=== PATIENT | female | born 1975 | race Caucasian/White ===

== ENCOUNTER 2017-07-22 13:28 | Emergency (ER) | payer SELFPAY ==
[2017-07-22] MEDS ORDERED: Sodium Chloride 0.9% 1,000 ML IV SCH (14:15)
[2017-07-22] MEDS ORDERED: Aspirin 81 MG Tab.Chew PO ONE (14:23)
[2017-07-22] MEDS ORDERED: Ondansetron 4 MG/2 ML SDV IVPUSH ONE ×2 (14:23→15:54)
[2017-07-22] MEDS ORDERED: Alum Hydrox/Mag Hydrox/Simeth 30 ML, Lidocaine 2% 15 ML PO ONE ×2 (14:23)
[2017-07-22] MEDS ORDERED: Metoprolol Tartrate 5 MG/5 ML SDV IVPUSH ONE ×2 (14:27→15:26)
--- NOTE | 2017-07-22 14:30 | EDM.PDOC ---
ED HPI GENERAL MEDICAL PROBLEM - General Chief Complaint: Chest Pain Stated Complaint: VOMITING/CHEST PAIN Time Seen by Provider: 07/22/17 14:14 Source of Information: Reports: Patient History Limitations: Reports: No Limitations - History of Present Illness INITIAL COMMENTS - FREE TEXT/NARRATIVE: Patient is a 42-year-old female presents ED complaining of nausea and vomiting that started last night. Patient has vomited multiple times since onset. In addition developed chest discomfort this morning rated a 7 out of 10 substernal with no radiation. Described as a sharp discomfort that is constant with waxing and waning in intensity. This is not similar to previous episode of chest discomfort approximately 4 months ago when she was diagnosed with heart attack. Heart catheterization took place at that time with no stent placement. She continues to be nauseated with no bloody emesis. Mild epigastric discomfort. No diarrhea or dysuria present. She has been consuming alcohol for the past 2 weeks every day. This is abnormal for her. She does have a history of marijuana use but denies any or other recent recreational drugs. She is moving from [facility] to [place], [place]. States her boyfriend is incarcerated in [place] for the past 6 months. She will be going to pick him up in the next few weeks to move him to [place]. He has a job lined up to work in the [employer]. Pain to epigastric region increases with eating/ vomiting. Decreased with laying down. She does have history of anxiety. She currently taking Lasix, metoprolol, atorvastatin, baby aspirin, and albuterol inhaler. She denies any additional medical history. Other than heart catheterization denies any additional surgeries. Patient does not smoke. Patient admits to not following up with pharmacist and or PCP upon discharge from the hospital after being diagnosed with heart disease. She presents to the ED with elevated systolic and diastolic pressures. She states this is normal for her. She denies having a history of pulmonary hypertension. 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 Denies: Fever, Chills HEENT: Reports: No Symptoms Respiratory: Denies: Shortness of Breath, Cough, Sputum Cardiovascular: Reports: Chest Pain. Denies: Dyspnea on Exertion, Palpitations GI/Abdominal: Reports: Abdominal Pain (epigstric), Decreased Appetite, Nausea, Vomiting. Denies: Black Stool, Bloody Stool, Constipation, Diarrhea, Difficulty Swallowing, Distension, Flatus, Hematemesis, Hematochezia, Melena : Reports: No Symptoms Musculoskeletal: Denies: Back Pain Neurological: Reports: No Symptoms ED EXAM, GENERAL - Physical Exam Exam: See Below Exam Limited By: No Limitations General Appearance: Alert, WD/WN, No Apparent Distress Eye Exam: Bilateral Eye: Normal Inspection Ears: Hearing Grossly Normal Nose: Normal Inspection Throat/Mouth: Normal Voice, No Airway Compromise Neck: Normal Inspection, Supple, Non-Tender Respiratory/Chest: No Respiratory Distress, Lungs Clear, Normal Breath Sounds, No Accessory Muscle Use, Chest Non-Tender Cardiovascular: Normal Peripheral Pulses, Regular Rate, Rhythm, No Murmur Peripheral Pulses: 2+: Radial (L), Radial (R) GI/Abdominal: Normal Bowel Sounds, Soft, No Organomegaly, No Distention, Tender (epigastric region) Back Exam: Normal Inspection. No: CVA Tenderness (L), CVA Tenderness (R) Extremities: Normal Inspection, Normal Range of Motion, Non-Tender, No Pedal Edema, Normal Capillary Refill Neurological: Alert, Oriented, CN II-XII Intact, Normal Cognition, No Motor/ Sensory Deficits Psychiatric: Normal Affect, Normal Mood Skin Exam: Warm, Dry, Intact, Normal Color Course - Vital Signs Last Recorded V/S: Last Vital Signs Temp 96.1 F 07/22/17 13:59 Pulse 83 07/22/17 15:32 Resp 16 07/22/17 13:59 BP 196/148 H 07/22/17 16:07 Pulse Ox 94 L 07/22/17 13:59 - Orders/Labs/Meds Orders: Active Orders 24 hr Category Date Time Status EKG Documentation Completion [RC] STAT Care 07/22/17 14:11 Active EKG Documentation Completion [RC] STAT Care 07/22/17 16:24 Active Peripheral IV Care [RC] . DIRECTED Care 07/22/17 14:11 Active DRUG SCREEN, URINE [URCHEM] Stat Lab 07/22/17 14:27 Uncollected Heparin Sodium/D5W [Heparin 25,000 Units in D5W 500 ML] Med 07/22/17 16:30 Active 25,000 units in 500 ml IV TITRATE Sodium Chloride 0.9% [Normal Saline] 1,000 ml Med 07/22/17 14:15 Active IV ASDIRECTED Sodium Chloride 0.9% [Saline Flush] Med 07/22/17 14:11 Active 10 ml FLUSH ASDIRECTED PRN Sodium Chloride 0.9% [Saline Flush] Med 07/22/17 16:40 Active 10 ml FLUSH ONETIME PRN Peripheral IV Insertion Adult [OM.PC] Stat Oth 07/22/17 14:11 Ordered Medication Orders Sodium Chloride (Normal Saline) 1,000 mls @ 150 mls/hr IV ASDIRECTED GRISEL Last Admin: 07/22/17 14:44 Dose: 150 mls/hr Heparin Sodium/Dextrose (Heparin 25,000 Units In D5w 500 Ml) 25,000 units in 500 mls @ 0 mls/hr IV TITRATE GRISEL; 12 UNITS/KG/HR PRN Reason: Protocol Last Admin: 07/22/17 17:11 Dose: 14.2 mls/hr Admin: 07/22/17 17:06 Dose: 999 mls/hr Sodium Chloride (Saline Flush) 10 ml FLUSH ASDIRECTED PRN PRN Reason: Keep Vein Open Last Admin: 07/22/17 16:58 Dose: 10 ml Admin: 07/22/17 14:50 Dose: 10 ml Sodium Chloride (Saline Flush) 10 ml FLUSH ONETIME PRN PRN Reason: IV FLUSH Labs: Laboratory Tests 07/22/17 07/22/17 07/22/17 Range/Units 15:40 15:40 15:40 WBC 12.38 H (3.98-10.04) K/mm3 RBC 6.15 H (3.98-5.22) M/mm3 Hgb 18.0 H (11.2-15.7) gm/L Hct 53.6 H (34.1-44.9) % MCV 87.2 (79.4-94.8) fl MCH 29.3 (25.6-32.2) pg MCHC 33.6 (32.2-35.5) g/dl RDW Std Deviation 49.8 H (36.4-46.3) fL Plt Count 303 (182-369) K/mm3 MPV 9.7 (9.4-12.3) fl Neut % (Auto) 83.2 H (34.0-71.1) % Lymph % (Auto) 13.1 L (19.3-51.7) % Duchesne % (Auto) 3.1 L (4.7-12.5) % Eos % (Auto) 0.2 L (0.7-5.8) Baso % (Auto) 0.2 (0.1-1.2) % Neut # (Auto) 10.31 H (1.56-6.13) K/mm3 Lymph # (Auto) 1.62 (1.18-3.74) K/mm3 Duc[place]ne # (Auto) 0.38 H (0.24-0.36) K/mm3 Eos # (Auto) 0.03 L (0.04-0.36) K/mm3 Baso # (Auto) 0.02 (0.01-0.08) K/mm3 Manual Slide Review Normal smear APTT (22-36) SECONDS Sodium 134 L (136-145) mEq/L Potassium 4.4 (3.5-5.1) mEq/L Chloride 100 (98-107) mEq/L Carbon Dioxide 24 (21-32) mEq/L Anion Gap 14.4 (5-15) BUN 27 H (7-18) mg/dL Creatinine 1.0 (0.55-1.02) mg/dL Est Cr Clr Drug Dosing 62.64 mL/min Estimated GFR (MDRD) > 60 (>60) mL/min BUN/Creatinine Ratio 27.0 H (14-18) Glucose 145 H (74-106) mg/dL Calcium 9.1 (8.5-10.1) mg/dL Magnesium 1.9 (1.8-2.4) mg/dl Total Bilirubin 2.5 H (0.2-1.0) mg/dL AST 25 (15-37) U/L ALT 17 (14-59) U/L Alkaline Phosphatase 151 H (46-116) U/L Troponin I 0.120 H* (0.00-0.056) ng/mL C-Reactive Protein 0.9 (<1.0) mg/dL Total Protein 8.1 (6.4-8.2) g/dl Albumin 3.5 (3.4-5.0) g/dl Globulin 4.6 gm/dL Albumin/Globulin Ratio 0.8 L (1-2) Lipase 85 (73-393) U/L Ethyl Alcohol 0.00 (0.00) gm% 07/22/17 07/22/17 07/22/17 Range/Units 15:40 16:30 17:40 WBC (3.98-10.04) K/mm3 RBC (3.98-5.22) M/mm3 Hgb (11.2-15.7) gm/L Hct (34.1-44.9) % MCV (79.4-94.8) fl MCH (25.6-32.2) pg MCHC (32.2-35.5) g/dl RDW Std Deviation (36.4-46.3) fL Plt Count 318 (182-369) K/mm3 MPV (9.4-12.3) fl Neut % (Auto) (34.0-71.1) % Lymph % (Auto) (19.3-51.7) % Duchesne % (Auto) (4.7-12.5) % Eos % (Auto) (0.7-5.8) Baso % (Auto) (0.1-1.2) % Neut # (Auto) (1.56-6.13) K/mm3 Lymph # (Auto) (1.18-3.74) K/mm3 Duc[place]ne # (Auto) (0.24-0.36) K/mm3 Eos # (Auto) (0.04-0.36) K/mm3 Baso # (Auto) (0.01-0.08) K/mm3 Manual Slide Review APTT 28 (22-36) SECONDS Sodium (136-145) mEq/L Potassium (3.5-5.1) mEq/L Chloride (98-107) mEq/L Carbon Dioxide (21-32) mEq/L Anion Gap (5-15) BUN (7-18) mg/dL Creatinine (0.55-1.02) mg/dL Est Cr Clr Drug Dosing mL/min Estimated GFR (MDRD) (>60) mL/min BUN/Creatinine Ratio (14-18) Glucose (74-106) mg/dL Calcium (8.5-10.1) mg/dL Magnesium (1.8-2.4) mg/dl Total Bilirubin (0.2-1.0) mg/dL AST (15-37) U/L ALT (14-59) U/L Alkaline Phosphatase (46-116) U/L Troponin I 0.119 H* (0.00-0.056) ng/mL C-Reactive Protein (<1.0) mg/dL Total Protein (6.4-8.2) g/dl Albumin (3.4-5.0) g/dl Globulin gm/dL Albumin/Globulin Ratio (1-2) Lipase (73-393) U/L Ethyl Alcohol (0.00) gm% Meds: Medications Generic Name Dose Route Start Last Admin Trade Name Freq PRN Reason Stop Dose Admin Sodium Chloride 1,000 mls @ 150 mls/hr 07/22/17 14:15 07/22/17 14:44 Normal Saline IV 150 mls/hr ASDIRECTED GRISEL Administration Heparin Sodium/Dextrose 25,000 units in 500 mls @ 0 mls/hr 07/22/17 16:30 17:11 Heparin 25,000 Units In D5w 500 Ml IV 14.2 mls/hr TITRATE GRISEL Administration Protocol 12 UNITS/KG/HR Sodium Chloride 10 ml 07/22/17 14:11 07/22/17 16:58 Saline Flush FLUSH 10 ml ASDIRECTED PRN Administration Keep Vein Open Sodium Chloride 10 ml 07/22/17 16:40 Saline Flush FLUSH ONETIME PRN IV FLUSH Discontinued Medications Generic Name Dose Route Start Last Admin Trade Name Freq PRN Reason Stop Dose Admin Aspirin 324 mg 07/22/17 14:23 07/22/17 14:48 Aspirin PO 07/22/17 14:24 324 mg ONETIME ONE Administration Clonidine HCl 0.1 mg 07/22/17 16:01 07/22/17 16:07 Catapres PO 07/22/17 16:02 0.1 mg ONETIME ONE Administration Al Hydroxide/Mg Hydroxide 30 0 ml 07/22/17 14:23 07/22/17 14:48 ml/ Lidocaine HCl 15 ml PO 07/22/17 14:24 45 ml ONETIME ONE Administration Iopamidol 80 ml 07/22/17 16:40 07/22/17 16:58 Isovue-300 (61%) IVPUSH 07/22/17 16:41 80 ml ONETIME ONE Administration Lorazepam 1 mg 07/22/17 14:32 07/22/17 14:45 Ativan IVPUSH 07/22/17 14:33 1 mg ONETIME ONE Administration Metoprolol Tartrate 5 mg 07/22/17 14:27 07/22/17 14:47 Lopressor IVPUSH 07/22/17 14:28 5 mg ONETIME ONE Administration Metoprolol Tartrate 10 mg 07/22/17 15:26 07/22/17 15:32 Lopressor IVPUSH 07/22/17 15:27 10 mg ONETIME ONE Administration Ondansetron HCl 4 mg 07/22/17 14:23 07/22/17 14:44 Zofran IVPUSH 07/22/17 14:24 4 mg ONETIME ONE Administration Ondansetron HCl 4 mg 07/22/17 15:54 07/22/17 16:07 Zofran IVPUSH 07/22/17 15:55 4 mg ONETIME ONE Administration - Re-Assessments/Exams Free Text/Narrative Re-Assessment/Exam: Ordered peripheral IV with Zofran 4 mg IVP, normal saline, ativan 1mg IVP, and GI cocktail by mouth. Initial labs and studies include CBC, chem 14, lipase, CRP , troponin, chest x-ray one view, urine drug tox, EtOH, magnesium, and EKG. I have ordered lopressor 5mg IVP. EKG revealed some ischemic changes noted to the inferior lateral leads. LA interval is 159. QTC is 564. No prior EKG to compare with. Of note vital signs upon admission to the ER blood pressure 194/149. This has been rechecked a few times with elevated pressures present. She is on metoprolol 25 mg twice a day. States she's been taking all her home medications. She has been consuming alcohol every day for the past 2 weeks as well. Yesterday developed nausea/vomiting thus has not consumed alcohol since yesterday morning. She consumes 1 pint of vodka daily. Unclear why she has been consuming alcohol every day since moving to [place]. She does state that her boyfriend is currently incarcerated and she has to go back to pick him up. She has been moving to [place], [place] in preparation for a new job for her boyfriend once freed from shelter. She does utilize marijuana on a daily basis. She states approximately 4 months ago was diagnosed with a heart attack. She underwent heart catheterization with no stent placement. They were unclear etiology of KS. 07/22/17 15:14 Chest x-ray impression: Heart is enlarged but accentuated from portable technique. Prominence of the right hilum. Contrast enhanced chest CT recommended to rule out hilar adenopathy. This is most likely due to vascular confluence. Nothing acute is otherwise seen on portable chest x-ray. 07/22/17 15:56 Reassessment, patients chest pain has resolved. Continues to have nausea. Ordered zofran 4mg IVP. BP decreased to 170/s. Back up to 198/ 139. Ordered clonidine 0.1 mg by mouth. 07/22/17 16:22 Labs finally reported out. Sodium 134, potassium 4.4, AG 14.4, creatinine 1.0, glucose 145 bilirubin 2.5, AST 25, ALTs 17, alk phosphatase 151 , lipase 85, troponin 0.120, and CRP 0.9. CBC revealed white blood cell count 12.38, hemoglobin 18.0, neutrophil percentage is 83.2, neutrophil number is 10.31, and platelets 303. Order heparin bolus and infusion. Will contact [facility] to transfer for further cardiac workup. 07/22/17 16:[address] Khan on-call pharmacist. He suggested serial troponins, start the heparin drip with bolus, and also obtain medical records from where previous heart catheterization took place. Consult him with results of medical records. No records have been obtained at this time. In the process. I have ordered CT of the chest with IV contrast to further delineate prominence of right hilum. CT of the chest impression: Mildly enlarged main pulmonary arteries likely normal variant. Slightly prominent heart size. Given the patient's age, echocardiogram could be considered. No findings of pulmonary embolism. Small left lower lobe pulmonary nodule. The patient is a smoker, recommend repeat chest CT in 9 months. This can be performed without contrast. The patient is not a smoker this can be ignored. Nothing acute is appreciated. Reviewed clinic evaluation notes by Dr. Arcadio Gonzalez at [facility] dated May 17, 2017. Dr. Gonzalez's part of the hypertrophic cardiomyopathy clinic. It was found patient has severe hypertension, polysubstance use and a recent diagnosis of heart failure It was originally felt to be related to hypertrophic cardiomyopathy, but on additional evaluations, including today's cardiac MRI study, is more apparent that this is likely a pulmonary hypertension process. She is severely elevated pulmonary pressures that are out of proportion to the extent of her left heart dysfunction. It is possible that this is related to her past methamphetamine use. Therefore arrange to be seen in the pulmonary clinic for further evaluation. She will likely need both a chest CT and right heart catheterization. He will speak to them about potentially arranging her to begin sildenafil as a first line agent for pulmonary hypertension. Her blood pressure is considered elevated today, and has been on all recent outpatient encounters I have seen in documented everywhere. Her systolic blood pressure has been in the 110 range for much of the past 2 years. I don't have enough information if she has had any prior evaluations for secondary causes of hypertension, though nothing is showing up in her recent testing. She is asymptomatic from this and would benefit from gradual BP reduction. I will discuss this further with her local primary care provider. Patient admits she has not been following with her primary care provider, veterinary receptionist, or pharmacist since being evaluated for KS. Patient has been residing in [facility] to get away from methamphetamine use with plans and moving. She has not established care. She continues to drink alcohol and utilize marijuana. She denies ever being on Viagra for pulmonary hypertension. Second EKG did not reveal any changes in comparison to the first EKG with earlier admission. 07/22/17 18:[address] 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 Believes troponin leak is secondary to pulmonary hypertension. Troponin was 0.119 on second reading. Suggested follow-up with a veterinary receptionist to discuss treatment for pulmonary hypertension. Heparin will be discontinued. Patient will continue on metoprolol, Lasix, atorvastatin, baby aspirin, and albuterol inhaler. We'll discharge patient home with instructions to establish medical care with a primary care provider here in [place] and also follow up with a veterinary receptionist for further discussion of treatment for pulmonary hypertension. 07/22/17 20:34 Departure - Departure Time of Disposition: 19:08 Disposition: Home, Self-Care 01 Condition: Good Clinical Impression: Pulmonary hypertension, Elevated troponin, Alcohol abuse, Polycythemia N&V (nausea and vomiting) Qualifiers: Vomiting type: unspecified Vomiting Intractability: non-intractable Qualified Code(s): R11.2 - Nausea with vomiting, unspecified Prescriptions: Ondansetron [Zofran ODT] 4 mg PO Q6H PRN #12 tab.dis PRN Reason: Nausea/Vomiting Referrals: Lencho Paul [Physician] - Yulissa Arredondo MD [Ordering Only Provider] - Scott Khan MD [Ordering Only Provider] - PCP,Not In Area [Primary Care Provider] - Forms: ED Department Discharge Additional Instructions: As discussed troponin was elevated on 2 separate readings. This is partly due to severe pulmonary hypertension. You must establish primary care with a provider here at [facility] for management of your chronic disease states. In addition I have provided contact information for [facility] [place] and also a pharmacist at [facility]. Call and make an appointment. Continue taking all your home medications as prescribed. Refrain from alcohol, marijuana, methamphetamine use. Return to the ED for any new or worsening symptoms. Take the zofran as prescribed for n/v. Suggest clear liquid diet for the next 24 hrs. Advance to bland diet thereafter. - My Orders Last 24 Hours: My Active Orders 07/22/17 14:11 EKG Documentation Completion [RC] STAT Peripheral IV Care [RC] . DIRECTED Sodium Chloride 0.9% [Saline Flush] 10 ml FLUSH ASDIRECTED PRN Peripheral IV Insertion Adult [OM.PC] Stat 07/22/17 14:15 Sodium Chloride 0.9% [Normal Saline] 1,000 ml IV ASDIRECTED 07/22/17 14:27 DRUG SCREEN, URINE [URCHEM] Stat 07/22/17 16:24 EKG Documentation Completion [RC] STAT 07/22/17 16:30 Heparin Sodium/D5W [Heparin 25,000 Units in D5W 500 ML] 25,000 units in 500 ml IV TITRATE 07/22/17 16:40 Sodium Chloride 0.9% [Saline Flush] 10 ml FLUSH ONETIME PRN - Assessment/Plan Last 24 Hours: My Active Orders 07/22/17 14:11 EKG Documentation Completion [RC] STAT Peripheral IV Care [RC] . DIRECTED Sodium Chloride 0.9% [Saline Flush] 10 ml FLUSH ASDIRECTED PRN Peripheral IV Insertion Adult [OM.PC] Stat 07/22/17 14:15 Sodium Chloride 0.9% [Normal Saline] 1,000 ml IV ASDIRECTED 07/22/17 14:27 DRUG SCREEN, URINE [URCHEM] Stat 07/22/17 16:24 EKG Documentation Completion [RC] STAT 07/22/17 16:30 Heparin Sodium/D5W [Heparin 25,000 Units in D5W 500 ML] 25,000 units in 500 ml IV TITRATE 07/22/17 16:40 Sodium Chloride 0.9% [Saline Flush] 10 ml FLUSH ONETIME PRN
[2017-07-22] MEDS ORDERED: LORazepam 2 MG/ML MDV IVPUSH ONE (14:32)
--- NOTE | 2017-07-22 14:48 | CR ---
Chest: Portable view of the chest was obtained. Comparison: No previous study. Heart is enlarged. Slightly prominent right hilum is seen. Lungs are clear with no acute infiltrates. Bony structures are grossly intact. Impression: 1. Heart is enlarged but accentuated from portable technique. 2. Prominence of the right hilum. Contrast-enhanced chest CT recommended to rule out hilar adenopathy. This is most likely due to vascular confluence. 3. Nothing acute is otherwise seen on portable chest x-ray. Diagnostic code #9
[2017-07-22] MEDS: Sodium Chloride 0.9% 10 ML Syringe FLUSH PRN ×2 (14:50→16:58)
[2017-07-22] MEDS ORDERED: cloNIDine 0.1 MG Tab PO ONE (16:01)
[2017-07-22 16:07] VITALS: BP 196/148
[2017-07-22] MEDS ORDERED: Iopamidol 612 MG/ML 100 ML Bottle IVPUSH ONE (16:40)
[2017-07-22] MEDS ORDERED: Sodium Chloride 0.9% 10 ML Syringe FLUSH PRN (16:40)
[2017-07-22] MEDS: Heparin Sodium/D5W 25,000 UNITS/500 ML BAG IV SCH ×2 (17:06→17:11)
--- NOTE | 2017-07-22 17:23 | CT ---
CT chest Technique: Multiple axial sections were obtained from above the dome of the diaphragm inferiorly through the pubic symphysis. Intravenous contrast was utilized. Comparison: No previous chest CT, previous chest x-ray performed earlier on the same day (2:21 PM). Findings: Main pulmonary as well as right and left pulmonary arteries are increased in size. No filling defects are seen to indicate pulmonary embolism. Heart size is slightly enlarged. Minimal coronary artery calcification is seen. Mediastinum and hilar regions show no adenopathy or mass. Prominence of the right hilum is felt to relate to the pulmonary artery on recent chest x-ray. Small pulmonary nodule is noted within the left lung base measuring 5 mm. Lungs otherwise are clear. No pleural effusions or pneumothorax is seen. Impression: 1. Mildly enlarged main pulmonary arteries likely normal variant. 2. Slightly prominent heart size. Given the patient's age, echocardiogram could be considered. 3. No findings of pulmonary embolism. 4. Small left lower lobe pulmonary nodule. If patient is a smoker, recommend repeat chest CT in 9 months. This can be performed without contrast. If patient is not a smoker, this can be ignored. 5. Nothing acute is appreciated. Diagnostic code #9
== END 2017-07-22 19:31 | disposition home or self-care (01) ==
LOC: JD.ED 13:28
DX: I27.2 Other secondary pulmonary hypertension (principal); D75.1 Secondary polycythemia; F10.10 Alcohol abuse, uncomplicated; Z87.891 Personal history of nicotine dependence
CPT/HCPCS: 36415; 71010; 71260; 80053; 83690; 83735; 84484; 85025; 85049; 85730; 86140; 93005; 96361; 96365; 96366; 96375; 96376; 99285; A9270; G0480; J1644; J2060; J2405; J7040; J7050; Q9967; J3490

== ENCOUNTER 2017-07-26 13:05 | Emergency (ER) | payer SELFPAY ==
[2017-07-26] MEDS ORDERED: Sodium Chloride 0.9% 10 ML Syringe FLUSH PRN (13:07)
[2017-07-26] MEDS ORDERED: Ondansetron 4 MG/2 ML SDV IVPUSH ONE ×2 (13:08→14:30)
[2017-07-26] MEDS ORDERED: Ondansetron 4 MG/2 ML SDV ONE (13:13)
[2017-07-26] MEDS ORDERED: Sodium Chloride 0.9% 500 ML IV ONE (13:24)
[2017-07-26] MEDS ORDERED: Ketorolac 30 MG/ML SDV IVPUSH ONE (13:24)
[2017-07-26] MEDS ORDERED: hydrALAZINE 20 MG/ML SDV IVPUSH ONE (13:26)
--- NOTE | 2017-07-26 13:36 | EDM.PDOC ---
<Liz Garduno Delio - Last Filed: 07/26/17 15:17> ED HPI GENERAL MEDICAL PROBLEM - General Chief Complaint: Chest Pain Stated Complaint: [facility] Time Seen by Provider: 07/26/17 13:07 Source of Information: Reports: Patient History Limitations: Reports: No Limitations - History of Present Illness INITIAL COMMENTS - FREE TEXT/NARRATIVE: The patient is a 42-year-old female with a complex past medical history including pulmonary hypertension, hypertension, prior alcohol and drug abuse, who comes in today with chest pain. The patient was seen here about 5 days ago with chest pain. At that time she had elevated troponin that was stable and thought to be troponin leak due to poorly controlled underlying disease. She was discharged after consultation with a model maker plaster over the phone. She returns today because she has new chest pain today. She states that her chest pain today feels different than the pain she was seen for a week ago. Today, she states she developed pain shortly after waking up this morning. The pain is located in the mid lower chest on the right side. She also has some associated abdominal pain in the right upper abdominal area. It is associated with nausea. She's had a few episodes of vomiting this morning. Chest pain has been moderate to severe and constant. Waxes and wanes. No relieving or exacerbating factors. Patient denies cough or fever. Denies lower extremity pain or swelling. Denies history of similar symptoms previously. She states that she is compliant with her medications which include metoprolol and Lasix and a statin, however review of her pill bottles suggest that she has missed a large number of doses since time of most recent prescriptions. She has not established care with a local provider. She has not arranged any follow-up after her recent emergency department visit. She states that she had one drink of alcohol yesterday but no more, and states she hasn't used meth in over a month. 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 (see below) Other Treatments PLANTING MATERIAL CARRIER: see ambulance report Chest Pain Score (Numeric/FACES): 6 - Related Data Allergies Allergy/AdvReac Type Severity Reaction Status Date / Time No Known Allergies Allergy Verified 07/22/17 13:59 Home Meds: Home Meds Ondansetron [Zofran ODT] 4 mg PO Q6H PRN #12 tab.dis 07/22/17 [Rx] Furosemide [Lasix] 40 mg PO DAILY 07/26/17 [History] Lisinopril 10 mg PO DAILY #30 tablet 07/26/17 [Rx] Metoprolol Tartrate 25 mg PO BID 07/26/17 [History] Ondansetron [Zofran ODT] 4 mg PO Q6H PRN #10 tab.dis 07/26/17 [Rx] atorvaSTATin [Lipitor] 40 mg PO DAILY 07/26/17 [History] Past Medical History Cardiovascular History: Reports: Hypertension, Other (See Below) Other Cardiovascular History: heart attack about 4 months ago [employer]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: Social & Family History - Tobacco Use Smoking Status *Q: Former Smoker Used Tobacco, but Quit: No Month Tobacco Last Used: 10 yr - Caffeine Use Caffeine Use: Reports: None - Recreational Drug Use Recreational Drug Use: Yes Drug Use in Last 12 Months: Yes Recreational Drug Type: Reports: Methamphetamine Other Recreational Drug Type: last used about 1 month ago ED ROS GENERAL - Review of Systems Review Of Systems: See Below Constitutional: Denies: Fever HEENT: Reports: No Symptoms Respiratory: Denies: Shortness of Breath Cardiovascular: Reports: Chest Pain Endocrine: Reports: No Symptoms GI/Abdominal: Reports: Abdominal Pain, Vomiting : Reports: No Symptoms Musculoskeletal: Reports: No Symptoms Skin: Reports: No Symptoms Neurological: Reports: No Symptoms Psychiatric: Reports: No Symptoms Hematologic/Lymphatic: Reports: No Symptoms Immunologic: Reports: No Symptoms ED EXAM, GENERAL - Physical Exam Exam: See Below Exam Limited By: No Limitations General Appearance: Alert, WD/WN, No Apparent Distress, Other (Disheveled appearance) Eye Exam: Bilateral Eye: Normal Inspection, PERRL Ears: Normal External Exam Nose: Normal Inspection Throat/Mouth: Normal Inspection, Normal Voice, No Airway Compromise Head: Atraumatic, Normocephalic Neck: Normal Inspection, Supple, Non-Tender, Full Range of Motion Respiratory/Chest: No Respiratory Distress, Lungs Clear, Normal Breath Sounds, Other (Mild right parasternal tenderness, no crepitus) Cardiovascular: Normal Peripheral Pulses, Regular Rate, Rhythm, No Murmur GI/Abdominal: Soft, Other (Right upper quadrant tenderness, no rebound or guarding) Extremities: Normal Inspection. No: Pedal Edema Neurological: Alert, Oriented, Normal Cognition, No Motor/Sensory Deficits Psychiatric: Normal Affect, Normal Mood Skin Exam: Warm, Dry, Intact, Normal Color, No Rash Course - Vital Signs Last Recorded V/S: Last Vital Signs Temp 97.1 F 07/26/17 13:07 Pulse 72 07/26/17 14:51 Resp 17 07/26/17 14:51 BP 176/129 H 07/26/17 14:51 Pulse Ox 96 07/26/17 14:51 - Orders/Labs/Meds Orders: Active Orders 24 hr Category Date Time Status EKG 12 Lead [EKG Documentation Completion] [RC] STAT Care 07/26/17 13:07 Active Peripheral IV Care [RC] . DIRECTED Care 07/26/17 13:07 Active Sodium Chloride 0.9% [Saline Flush] Med 07/26/17 13:07 Active 10 ml FLUSH ASDIRECTED PRN Peripheral IV Insertion Adult [OM.PC] Routine Oth 07/26/17 13:07 Ordered Medication Orders Sodium Chloride (Saline Flush) 10 ml FLUSH ASDIRECTED PRN PRN Reason: Keep Vein Open Last Admin: 07/26/17 13:16 Dose: 10 ml Labs: Laboratory Tests 07/26/17 07/26/17 07/26/17 Range/Units 13:06 13:08 13:08 WBC 11.47 H (3.98-10.04) K/mm3 RBC 5.81 H (3.98-5.22) M/mm3 Hgb 17.1 H (11.2-15.7) gm/L Hct 51.9 H (34.1-44.9) % MCV 89.3 (79.4-94.8) fl MCH 29.4 (25.6-32.2) pg MCHC 32.9 (32.2-35.5) g/dl RDW Std Deviation 51.2 H (36.4-46.3) fL Plt Count 280 (182-369) K/mm3 MPV 9.7 (9.4-12.3) fl Neut % (Auto) 79.7 H (34.0-71.1) % Lymph % (Auto) 15.4 L (19.3-51.7) % Thayer % (Auto) 4.1 L (4.7-12.5) % Eos % (Auto) 0.3 L (0.7-5.8) Baso % (Auto) 0.2 (0.1-1.2) % Neut # (Auto) 9.14 H (1.56-6.13) K/mm3 Lymph # (Auto) 1.77 (1.18-3.74) K/mm3 Thayer # (Auto) 0.47 H (0.24-0.36) K/mm3 Eos # (Auto) 0.03 L (0.04-0.36) K/mm3 Baso # (Auto) 0.02 (0.01-0.08) K/mm3 Sodium 137 (136-145) mEq/L Potassium 4.9 (3.5-5.1) mEq/L Chloride 100 (98-107) mEq/L Carbon Dioxide 30 (21-32) mEq/L Anion Gap 11.9 (5-15) BUN 16 (7-18) mg/dL Creatinine 0.9 (0.55-1.02) mg/dL Est Cr Clr Drug Dosing TNP Estimated GFR (MDRD) > 60 (>60) mL/min BUN/Creatinine Ratio 17.8 (14-18) Glucose 118 H (74-106) mg/dL Calcium 8.9 (8.5-10.1) mg/dL Total Bilirubin 1.4 H (0.2-1.0) mg/dL AST 34 (15-37) U/L ALT 31 (14-59) U/L Alkaline Phosphatase 136 H (46-116) U/L Troponin I 0.090 H* (0.00-0.056) ng/mL NT-Pro-B Natriuret Pep 4627 H (0-125) pg/mL Total Protein 8.3 H (6.4-8.2) g/dl Albumin 3.7 (3.4-5.0) g/dl Globulin 4.6 gm/dL Albumin/Globulin Ratio 0.8 L (1-2) Lipase 91 (73-393) U/L Urine Opiates Screen (NEGATIVE) Ur Buprenorphine Scrn (NEGATIVE) Ur Oxycodone Screen (NEGATIVE) Urine Methadone Screen (NEGATIVE) Ur Propoxyphene Screen (NEGATIVE) Ur Barbiturates Screen (NEGATIVE) Ur Tricyclics Screen (NEGATIVE) Ur Phencyclidine Scrn (NEGATIVE) Ur Amphetamine Screen (NEGATIVE) U Methamphetamines Scrn (NEGATIVE) U Benzodiazepines Scrn (NEGATIVE) U Cocaine Metab Screen (NEGATIVE) U Marijuana (THC) Screen (NEGATIVE) Ethyl Alcohol 0.01 (0.00) gm% 07/26/17 Range/Units 14:00 WBC (3.98-10.04) K/mm3 RBC (3.98-5.22) M/mm3 Hgb (11.2-15.7) gm/L Hct (34.1-44.9) % MCV (79.4-94.8) fl MCH (25.6-32.2) pg MCHC (32.2-35.5) g/dl RDW Std Deviation (36.4-46.3) fL Plt Count (182-369) K/mm3 MPV (9.4-12.3) fl Neut % (Auto) (34.0-71.1) % Lymph % (Auto) (19.3-51.7) % Thayer % (Auto) (4.7-12.5) % Eos % (Auto) (0.7-5.8) Baso % (Auto) (0.1-1.2) % Neut # (Auto) (1.56-6.13) K/mm3 Lymph # (Auto) (1.18-3.74) K/mm3 Thayer # (Auto) (0.24-0.36) K/mm3 Eos # (Auto) (0.04-0.36) K/mm3 Baso # (Auto) (0.01-0.08) K/mm3 Sodium (136-145) mEq/L Potassium (3.5-5.1) mEq/L Chloride (98-107) mEq/L Carbon Dioxide (21-32) mEq/L Anion Gap (5-15) BUN (7-18) mg/dL Creatinine (0.55-1.02) mg/dL Est Cr Clr Drug Dosing Estimated GFR (MDRD) (>60) mL/min BUN/Creatinine Ratio (14-18) Glucose (74-106) mg/dL Calcium (8.5-10.1) mg/dL Total Bilirubin (0.2-1.0) mg/dL AST (15-37) U/L ALT (14-59) U/L Alkaline Phosphatase (46-116) U/L Troponin I (0.00-0.056) ng/mL NT-Pro-B Natriuret Pep (0-125) pg/mL Total Protein (6.4-8.2) g/dl Albumin (3.4-5.0) g/dl Globulin gm/dL Albumin/Globulin Ratio (1-2) Lipase (73-393) U/L Urine Opiates Screen Presumptive positive H (NEGATIVE) Ur Buprenorphine Scrn Negative (NEGATIVE) Ur Oxycodone Screen Negative (NEGATIVE) Urine Methadone Screen Negative (NEGATIVE) Ur Propoxyphene Screen Negative (NEGATIVE) Ur Barbiturates Screen Negative (NEGATIVE) Ur Tricyclics Screen Negative (NEGATIVE) Ur Phencyclidine Scrn Negative (NEGATIVE) Ur Amphetamine Screen Negative (NEGATIVE) U Methamphetamines Scrn Negative (NEGATIVE) U Benzodiazepines Scrn Negative (NEGATIVE) U Cocaine Metab Screen Negative (NEGATIVE) U Marijuana (THC) Screen Presumptive positive H (NEGATIVE) Ethyl Alcohol (0.00) gm% Meds: Medications Generic Name Dose Route Start Last Admin Trade Name Freq PRN Reason Stop Dose Admin Sodium Chloride 10 ml 07/26/17 13:07 07/26/17 13:16 Saline Flush FLUSH 10 ml ASDIRECTED PRN Administration Keep Vein Open Discontinued Medications Generic Name Dose Route Start Last Admin Trade Name Freq PRN Reason Stop Dose Admin Hydralazine HCl 10 mg 07/26/17 13:26 07/26/17 13:39 Apresoline IVPUSH 07/26/17 13:27 10 mg ONETIME ONE Administration Sodium Chloride 500 mls @ 1,000 mls/hr 07/26/17 13:24 07/26/17 13:34 Normal Saline IV 07/26/17 13:53 1,000 mls/hr ONETIME ONE Administration Ketorolac Tromethamine 30 mg 07/26/17 13:24 07/26/17 13:35 Toradol IVPUSH 07/26/17 13:25 30 mg ONETIME ONE Administration Labetalol HCl 10 mg 07/26/17 14:00 07/26/17 14:07 Normodyne IVPUSH 07/26/17 14:01 10 mg ONETIME ONE Administration Protocol Metoclopramide HCl 10 mg 07/26/17 15:40 07/26/17 15:47 Reglan IVPUSH 07/26/17 15:41 10 mg ONETIME ONE Administration Morphine Sulfate 4 mg 07/26/17 15:42 07/26/17 15:53 Morphine IVPUSH 07/26/17 15:43 4 mg ONETIME ONE Administration Nitroglycerin 0.2 mg 07/26/17 13:59 07/26/17 14:35 Nitro-Dur 0.2 Mg/Hr TRDERM 07/26/17 14:00 0.2 mg ONETIME ONE Administration Ondansetron HCl 4 mg 07/26/17 13:08 07/26/17 13:15 Zofran IVPUSH 07/26/17 13:09 4 mg ONETIME ONE Administration Ondansetron HCl Confirm 07/26/17 13:13 07/26/17 13:36 Zofran Administered 07/26/17 13:14 Not Given Dose 4 mg .ROUTE .STK-MED ONE Ondansetron HCl 4 mg 07/26/17 14:30 07/26/17 14:33 Zofran IVPUSH 07/26/17 14:31 4 mg ONETIME ONE Administration - Re-Assessments/Exams Free Text/Narrative Re-Assessment/Exam: 07/26/17 15:18 Patient's chest x-ray shows cardiomegaly, no significant vascular congestion at this time. Her BNP is elevated. Her EKG shows some mild ST depression of the inferior leads similar to when she was here [address] elevation. Her troponin is mildly elevated at 0.09, this is less than when she was here 4 days ago at which time it was 0.1. Review of her records from her visit on the shows that she was quite hypertensive at that time as well. Her case was discussed with a model maker plaster in [place] felt that she could be discharged and followed as an outpatient. I suspect that her chronic troponin leak is due to her very poorly controlled pulmonary hypertension and systemic hypertension. I' m concerned about her medication compliance. She also appears to only be on a single antihypertensive (metoprolol)and a diuretic, (furosemide). She needs to be on a second antihypertensive at least. Departure - Departure Disposition: Home, Self-Care 01 Clinical Impression: Pulmonary hypertension N&V (nausea and vomiting) Qualifiers: Vomiting type: unspecified Vomiting Intractability: non-intractable Qualified Code(s): R11.2 - Nausea with vomiting, unspecified Prescriptions: Lisinopril 10 mg PO DAILY #30 tablet Ondansetron [Zofran ODT] 4 mg PO Q6H PRN #10 tab.dis PRN Reason: Nausea/Vomiting Instructions: Nausea, Adult, Gastritis, Adult, [id number], Pulmonary Hypertension Referrals: PCP,None [Primary Care Provider] - Forms: ED Department Discharge Additional Instructions: clear liquids and very bland diet as tolerated, continue metropolol and furosemide as previously prescribed, start lisinopril 10 mg daily to try obtain better blood pressure control. zofran ODT if needed for any further nausea or vomiting. Continue to avoid alcohol. Your abdominal ultrasound today does show that you have gallstones. Fatty foods may trigger gallbladder attacks so it is recomended that you avoid fatty foods as much as possible for now. Follow up at our [facility] clinic early next week with one of our providers for recheck and to help get you referred to a Environmental Compliance Technician as soon as possible. Call [phone] for appointment. Return to ED as needed is symptoms worsening in any way. <Alvarado Garduno - Last Filed: 07/26/17 19:08> Course - Re-Assessments/Exams Free Text/Narrative Re-Assessment/Exam: 07/26/17 16:31 Have assumed care for patient after change of shift. I agree with hx and exam as documented by Radha Garduno. US report and labs reviewed. When I did go to check on patient a few minutes ago she is now sleeping. I am told she had quite severe repetitive vomiting up until a short time ago. Will let her sleep for awhile, let the meds work for her and see how she is doing when she awakens. US of GB does show multiple stones, a small amount of fluid around the GB but does not show any duct dilitation.There is no mention of wall thickening. BP improved from prior treatment. 07/26/17 18:30. Patient is feeling much better, no further vomiting for about the past 2 1/2 hours. Her chest and upper abd discomfort is gone. She does feel up to going home at this time. As noted she does have gall stones. At this time she now is totally nontender RUQ, she does have some mild LUQ tenderness. It sounds like she did have significant RUQ tenderness on arrival. It was Dr Derrek Garduno's impression that upper upper abd pain, lower chest discomfort, nausea, repetitive vomiting today was more GI related than from the standpoint of her pulmonary hypertension. Patient is not aware of any gallbladder problems in the past. She is known to have significant alcohol hx, she states she has been trying not to drink alcohol recently. Discharge instr. as documented. Departure - Departure Time of Disposition: 18:43 Condition: Fair
[2017-07-26] MEDS ORDERED: Nitroglycerin 0.2 MG/HR Transdermal Patch TRDERM ONE (13:59)
[2017-07-26] MEDS ORDERED: Labetalol 100 MG/20 ML MDV IVPUSH ONE (14:00)
[2017-07-26] MEDS ORDERED: Metoclopramide 10 MG/2 ML SDV IVPUSH ONE (15:40)
[2017-07-26] MEDS ORDERED: Morphine 4 MG/ML Syringe IVPUSH ONE (15:42)
--- NOTE | 2017-07-26 16:00 | US ---
Limited abdominal ultrasound: Multiple real-time images of the upper right abdomen were obtained. Comparison: Previous ultrasound is not available Liver shows no focal abnormality. Several gallstones are seen. Small amount of pericholecystic fluid is seen next to the gallbladder. No biliary duct dilatation is seen. Right kidney shows no hydronephrosis or mass. Right kidney measures about 10.0 cm in length. Pancreas appears within normal limits. Impression: 1. Several gallstones. Slight pericholecystic fluid. No biliary duct dilatation is seen. 2. No additional abnormality is identified on right upper quadrant abdominal ultrasound. Diagnostic code #3
--- NOTE | 2017-07-26 16:02 | CR ---
Chest: Portable view of the chest was obtained. Comparison: Previous chest x-ray of 07/22/[address] of 07/22/17. Findings: Heart is enlarged. Slightly prominent left main pulmonary artery is seen. Lungs are clear. Bony structures are grossly intact. Impression: 1. Cardiomegaly and mild prominence of the main pulmonary artery. 2. Nothing acute is seen. Diagnostic code #3
[2017-07-26 19:34] VITALS: BP 137/108
== END 2017-07-26 20:59 | disposition home or self-care (01) ==
LOC: JD.ED 13:05
DX: I27.2 Other secondary pulmonary hypertension (principal); R11.2 Nausea with vomiting, unspecified; Z79.899 Other long term (current) drug therapy; Z87.891 Personal history of nicotine dependence
CPT/HCPCS: 36415; 71010; 76705; 80053; 80306; 83690; 83880; 84484; 85025; 93005; 96361; 96374; 96375; 99285; A9270; G0480; J0360; J1885; J2270; J2405; J2765; J7040; J7050